=== PATIENT | female | born 1965 | race Caucasian/White ===

== ENCOUNTER 2016-07-25 18:37 | Emergency (ER) | payer OTHER ==
[~2016-07-25] VITALS: Ht 165.1 cm; Wt 85.3 kg
[2016-07-25] MEDS ORDERED: CLONAZEPAM 0.50.5 M1 PO (19:06)
[2016-07-25] MEDS ORDERED: KEPPRA 500 MG500 M1 PO (19:09)
[2016-07-25] MEDS ORDERED: LEVOTHYROXIN0.125 M1 PO (19:10)
[2016-07-25] MEDS ORDERED: FOLIC ACID1 MG PO (19:10)
[2016-07-25] MEDS ORDERED: NECON1 EAC2 PO (19:10)
[2016-07-25] MEDS ORDERED: PROVERA10 MG PO (19:10)
[2016-07-25 20:04] LABS: ABSOLUTE NEUTROPHILS 3.1 thou/uL (1.4-8.2); BASOPHILS 0.6 % (0.0-2.0); EOSINOPHILS 2.8 % (0.0-3.0); HEMATOCRIT 39.7 % (37.0-47.0); HEMOGLOBIN 13.8 gm/dL (12.0-15.0); LYMPHOCYTES 31.2 % (24.0-44.0); MCH 32.8 pg (26.0-34.0); MCHC 34.9 g/dL (28.0-37.0); MCV 94.2 fL (80.0-100.0); MONOCYTES 5.7 % (1.0-8.0); PLATELET COUNT 233 thou/uL (150-400); POLYS 59.7 % (36.0-66.0); RBC 4.22 mil/uL (4.20-5.00); WBC 5.2 thou/uL (4.0-11.0)
[2016-07-25 20:05] LABS: MANUAL DIFF NO
[2016-07-25 20:12] LABS: CALCIUM 8.5 mg/dL (8.5-10.1); CREATININE 0.7 mg/dL (0.6-1.3); MAGNESIUM 1.9 mg/dL (1.8-2.4)
[2016-07-25 20:45] VITALS: BP 161/92
== END 2016-07-25 20:54 | disposition home or self-care (01) ==
LOC: ER 18:37
PROVIDERS: Emergency Medicine
DX: G40.909 Epilepsy, unspecified, not intractable, without status epilepticus (principal); Z86.19 Personal history of other infectious and parasitic diseases